=== PATIENT | female | born 1935 | race Asian ===

== ENCOUNTER 2018-02-10 15:08 | Outpatient (CLI) | payer OTHER, BC ==
[~2018-02-10 15:08] MED LIST: LISI20TA11 PO; LORTAB 7.5-3251 TAB PO
== END 2018-02-10 19:39 | disposition home or self-care (01) ==
LOC: RAD 15:08
DX: M25.561 Pain in right knee (principal)

== ENCOUNTER 2018-02-16 10:46 | Outpatient (CLI) | payer OTHER, BC | END 2018-02-16 22:26 | disposition home or self-care (01) | LOC: CT 10:46 | DX: R29.898 Other symptoms and signs involving the musculoskeletal system (principal) ==

== ENCOUNTER → 2019-02-24 09:24 | Outpatient (CLI) | payer OTHER, BC | END | disposition short-term general hospital (02) | LOC: AMB 09:24 | DX: R41.82 Altered mental status, unspecified (principal) | CPT/HCPCS: A0425; A0427 ==

== ENCOUNTER 2019-02-24 09:26 | Emergency (ER) | payer OTHER, BC ==
[~2019-02-24] VITALS: Ht 160 cm; Wt 75.8 kg
[2019-02-24 09:46] VITALS: TEMP 97.7
[2019-02-24 09:56] LABS: PLATELET COUNT 157 K/uL (152-353)
[2019-02-24 10:17] LABS: POTASSIUM 4.1 mmol/L (3.6-5.2)
[2019-02-24 11:32] VITALS: BP 141/49
== END 2019-02-24 11:34 | disposition home or self-care (01) ==
LOC: ED 09:26
PROVIDERS: Emergency Medicine
DX: E11.649 Type 2 diabetes mellitus with hypoglycemia without coma (principal); R55 Syncope and collapse; Z99.2 Dependence on renal dialysis
CPT/HCPCS: 36415; 80053; 85027; 93005; 96374; 99284; J7060

== ENCOUNTER 2019-06-15 15:47 | Outpatient (CLI) | payer OTHER, BC | END 2019-06-15 23:21 | disposition home or self-care (01) | LOC: RAD 15:47 | DX: J40 Bronchitis, not specified as acute or chronic (principal) ==

== ENCOUNTER 2019-11-01 08:22 | Emergency (ER) | payer OTHER, BC ==
[~2019-11-01] VITALS: Ht 160 cm; Wt 75.7 kg
[2019-11-01 08:25] VITALS: TEMP 98.9
[2019-11-01 09:38] LABS: PLATELET COUNT 300 K/uL (152-353)
[2019-11-01 10:10] LABS: POTASSIUM 3.8 mmol/L (3.6-5.2); SODIUM 131 mmol/L (136-145)
[2019-11-01 10:16] LABS: PARTIAL THROMBOPLASTIN TIME 23.4 SECONDS (24.5-33.6)
[2019-11-01 12:30] VITALS: BP 173/49
== END 2019-11-01 12:50 | disposition short-term general hospital (02) ==
LOC: ED 08:22
PROVIDERS: Hospitalist
DX: R41.82 Altered mental status, unspecified (principal); G45.9 Transient cerebral ischemic attack, unspecified; N18.6 End stage renal disease; Z99.2 Dependence on renal dialysis
CPT/HCPCS: 36415; 80053; 82550; 83605; 83880; 84484; 85027; 85610; 85730; 87040; 93005; 96365; 99284; J3370

== ENCOUNTER 2019-11-02 08:21 | Outpatient (CLI) | payer OTHER, BC | END 2019-11-02 08:22 | disposition short-term general hospital (02) | LOC: AMB 08:21 | DX: R46.4 Slowness and poor responsiveness (principal); I10 Essential (primary) hypertension | CPT/HCPCS: A0425; A0429 ==

== ENCOUNTER 2022-09-26 14:51 | Outpatient (CLI) | payer OTHER, BC | END 2022-09-26 19:06 | disposition home or self-care (01) | LOC: MAMMO 14:51 | PROVIDERS: ATTEND Nurse Practitioner Family | DX: N64.52 Nipple discharge (principal); Z85.3 Personal history of malignant neoplasm of breast; N63.0 Unspecified lump in unspecified breast; Z08 Encounter for follow-up examination after completed treatment for malignant neoplasm ==

== ENCOUNTER 2023-02-22 02:09 | Emergency (ER) | payer OTHER, BC ==
[~2023-02-22] VITALS: Ht 152.4 cm; Wt 68.0 kg
== END 2023-02-22 03:50 | disposition expired ==
LOC: ED 02:09
DX: I46.9 Cardiac arrest, cause unspecified (principal)
CPT/HCPCS: 92950; 96374; 96375; 96376; 99285; J0171; J0461